=== PATIENT | male | born 1970 | race Caucasian/White ===

== ENCOUNTER 2016-07-21 15:17 | Inpatient (IN) | payer OTHER, MEDICARE, BC ==
[~2016-07-21] VITALS: Ht 167.6 cm; Wt 102.6 kg
[~2016-07-21 15:17] MED LIST: GABA-526 PO; LEVO125T PO; METOPROLOL PO; TIZANADINE PO; VICODIN PO
--- NOTE | 2016-07-21 16:29 | ERA ---
ER Documentation Chief Complaint Date/Time DATE: 07/21/16 TIME: 16:29 Chief Complaint bilateral foot pain non traumatic. swelling no deformity. HPI The patient is a 45-year-old female, presenting to the ER because of acute on chronic low back pain, lower extremity weakness and having difficulty walking that began today. She normally takes Percocet for her pain but it did not work. She denies fever, chills, neck pain, chest pain, abdominal pain, vomiting , dysuria, fecal or urinary incontinence. She does not smoke, drink denies any history of intravenous drug abuse Past medical history: Chronic low back pain, hypothyroidism Past surgical history: Hysterectomy ROS All systems reviewed and are negative except as per history of present illness. Medications Home Meds Reported Medications [Tizanadine] No Conflict Check, PO PRN Y for MUSCLE SPASMS 12/15/13 [Vicodin] No Conflict Check, 10 MG PO Y for PAIN 12/15/13 Gabapentin* (Gabapentin*) 600 Mg Tablet, 600 MG PO TID, TAB 12/15/13 [Metoprolol] No Conflict Check, 50 MG PO DAILY 12/15/13 Levothyroxine Sodium* (Synthroid*) 125 Mcg Tablet, 125 MCG PO AC BREAKFAST, TAB 12/15/13 Allergies Allergies: Coded Allergies: No Known Allergy (Unverified , 12/15/13) PMhx/Soc History of Surgery: Yes (GASTRIC BYPASS, CHOLECSYTECTOMY, HYSTERECTOMY) Anesthesia Reaction: No Hx Neurological Disorder: No Hx Respiratory Disorders: No Hx Cardiac Disorders: Yes (HTN) Hx Psychiatric Problems: No Hx Miscellaneous Medical Probl: No Hx Alcohol Use: No Hx Substance Use: No Hx Tobacco Use: No Physical Exam Vitals Vital Signs Date Time Temp Pulse Resp B/P Pulse Ox O2 Delivery O2 Flow Rate FiO2 07/21/16 15:20 98.8 85 20 141/85 98 Physical Exam Const: No acute distress. Head: Atraumatic. Eyes: Normal Conjunctiva. ENT: Normal External Ears, Nose and Mouth. Neck: Full range of motion. No meningismus. Resp: Clear to auscultation bilaterally. Cardio: Regular rate and rhythm, no murmurs. Abd: Soft, non distended, normal bowel sounds, non tender. Skin: No petechiae or rashes. Back: No midline or flank tenderness. Ext: No cyanosis, or edema. Neur: Awake and alert. No focal deficit Psych: Normal Mood and Affect. Results 24 hrs Laboratory Tests Test 07/21/16 17:19 Bedside Urine Blood Negative Bedside Urine Glucose (UA) Negative Bedside Urine Ketones (LAB) Negative Bedside Urine Leukocyte Esterase (L Negative Bedside Urine Nitrite (LAB) Negative Bedside Urine Protein (LAB) Negative Bedside Urine pH (LAB) 5.5 Current Medications Medications (Trade) Dose Ordered Sig/Cristino Route PRN Reason Start Time Stop Time Status Last Admin Dose Admin Morphine Sulfate (morphine) 4 mg ONCE STAT IV 07/21/16 17:03 07/21/16 17:04 Cancel Ondansetron HCl (Zofran Inj) 4 mg ONCE STAT IV 07/21/16 17:03 07/21/16 17:04 Cancel Morphine Sulfate (morphine) 4 mg ONCE ONCE IM 07/21/16 18:00 07/21/16 18:01 DC 07/21/16 17:43 Ondansetron HCl (Zofran Odt) 4 mg ONCE STAT ODT 07/21/16 17:34 07/21/16 17:36 DC 07/21/16 17:43 Hydromorphone HCl (Dilaudid) 2 mg ONCE STAT IV 07/21/16 18:53 07/21/16 18:54 DC 07/21/16 19:05 Procedures/[place] [address] Radiology Main Line: [phone] DIAGNOSTIC IMAGING REPORT Patient: DARRYL AUSTIN : 1970 Age: 45 Sex: F [id number] DOS: 07/21/16 1703 Ordering MD: EDI TOWNSEND MD Location: FTE Room/Bed: PROCEDURE: CT Lumbar Spine without contrast. CLINICAL INDICATION: Back pain. TECHNIQUE: Noncontrast CT of the lumbar spine was performed with multiplanar reformatted images generated from the axial acquired data. The administered radiation dose was CTDI vol = 38.01 mGy, DLP = 1019.67 mGy-cm. COMPARISON: There are no similar studies submitted for comparison. FINDINGS: There is normal lumbar lordosis. The vertebral body heights are maintained. There is normal alignment. There is no destructive osseous lesion. There is no acute fracture. T12-L1 : There is no disc herniation, spinal canal, or foraminal stenosis. L1-L2 : There is a 1 mm broad-based disk bulge without spinal canal or bilateral foraminal stenosis. L2-L3 : There is a 2 mm broad-based disk bulge without spinal canal stenosis. There is mild to moderate right with mild left foraminal stenosis. L3-L4 : There is a 2 mm broad-based disk bulge with mild spinal canal stenosis. There is mild bilateral foraminal stenosis. L4-L5 : There is a 2 mm broad-based disk bulge with mild bilateral facet arthropathy without spinal canal stenosis. There is mild bilateral foraminal stenosis. L5-S1 : There is mild to moderate disk space narrowing with vacuum disk phenomenon. There is a 4 mm circumferential disk bulge effacing the bilateral lateral recesses with moderate bilateral facet arthropathy without spinal canal stenosis. There is moderate right with mild to moderate left foraminal stenosis. The sacroiliac joints are intact. Surgical clips are noted within the pelvis. The patient is status post cholecystectomy. IMPRESSION: 1. No acute fracture. 2. Multilevel degenerative changes most pronounced at L5-S1 where there is a circumferential disk bulge effacing the bilateral lateral recesses with moderate right and mild to moderate left foraminal stenosis. Further findings as detailed above. RPTAT: PP .Gio Summers MD, Date Time Electronically viewed and signed by .Gio Summers MD, MD on 07/21/2016 18:15 .F/ CC: EDI TOWNSEND MD MEDICAL MAKING DECISION: The patient is a 45-year-old female, presenting with acute on chronic low back pain with moderate disc disease. She was treated with morphine 4 mg IM and Dilaudid 2 mg IM with moderate response. The differential diagnoses considered include but are not limited to caudal equina syndrome, spinal abscess, DJD, diskitis, lumbar radiculopathy. Departure Diagnosis: Primary Impression: Intractable back pain Condition: Stable Comments I discussed the findings with the patient. I discussed the patient with the on- call hospitalist Dr. Morin who was made aware of the lab, the treatment, the patient condition. The patient is admitted to [facility] at 7:45 PM The patient's blood pressure was elevated (>120/80) but appears stable without evidence of hypertension emergency or urgency. The patient was counseled about the risks of hypertension and urged to pursue outpatient monitoring and therapy within a week after discharge with their primary care physician. EDI TOWNSEND MD Jul 21, 2016 16:29
[2016-07-21] MEDS ORDERED: ONDANSETRON 4 MG INJ IV STA (17:03)
[2016-07-21] MEDS ORDERED: morphine 4 MG/ML VIAL IV STA (17:03)
[2016-07-21 17:16] LABS: URINE BLOOD (Dip) POC Negative (NEGATIVE)
[2016-07-21] MEDS ORDERED: ONDANSETRON (ODT) 4 MG TAB ODT STA (17:34)
[2016-07-21] MEDS ORDERED: morphine 10 MG INJ IM ONE (18:00)
--- NOTE | 2016-07-21 18:16 | RADRPT ---
PROCEDURE: CT Lumbar Spine without contrast. CLINICAL INDICATION: Back pain. TECHNIQUE: Noncontrast CT of the lumbar spine was performed with multiplanar reformatted images gen erated from the axial acquired data. The administered radiation dose was CTDI vol = 38.01 mGy, DLP = 1019.67 mGy-cm. COMPARISON: There are no similar studies submitted for comparison. FINDINGS: There is normal lumbar lordosis. The vertebral body heights are maintained. There is normal alignment. There is no destructive osseous lesion. There is no acute fracture. T12-L1 : There is no disc herniation, spinal canal, or foraminal stenosis. L1-L2 : There is a 1 mm broad-based disk bulge without spinal canal or bilateral foraminal stenosis. L2-L3 : There is a 2 mm broad-based disk bulge without spinal canal stenosis. There is mild to mode rate right with mild left foraminal stenosis. L3-L4 : There is a 2 mm broad-based disk bulge with mild spinal canal stenosis. There is mild bilat eral foraminal stenosis. L4-L5 : There is a 2 mm broad-based disk bulge with mild bilateral facet arthropathy without spinal canal stenosis. There is mild bilateral foraminal stenosis. L5-S1 : There is mild to moderate disk space narrowing with vacuum disk phenomenon. There is a 4 mm circumferential disk bulge effacing the bilateral lateral recesses with moderate bilateral facet ar thropathy without spinal canal stenosis. There is moderate right with mild to moderate left foramin al stenosis. The sacroiliac joints are intact. Surgical clips are noted within the pelvis. The patient is status post cholecystectomy. IMPRESSION: 1. No acute fracture. 2. Multilevel degenerative changes most pronounced at L5-S1 where there is a circumferential disk bu lge effacing the bilateral lateral recesses with moderate right and mild to moderate left foraminal stenosis. Further findings as detailed above. RPTAT: PP .Gio Summers MD, Date Time Electronically viewed and signed by .Gio Summers MD, MD on 07/21/2016 18:15 .F/
[2016-07-21] MEDS ORDERED: HYDROmorphONE 2 MG/ML SYG IV STA (18:53)
[2016-07-21] MEDS ORDERED: ACETAMINOPHEN 325 MG TAB PO PRN (20:00)
[2016-07-21] MEDS ORDERED: DOCUSATE SODIUM 100 MG CAP PO PRN (20:00)
[2016-07-21] MEDS ORDERED: hydrALAzine 20 MG INJ IV PRN (20:00)
[2016-07-21] MEDS ORDERED: NACL 0.9% 3 ML SYG IV SCH (20:00)
[2016-07-21] MEDS ORDERED: morphine 2 MG INJ IV PRN (20:00)
[2016-07-21] MEDS ORDERED: ONDANSETRON 4 MG INJ IV PRN (20:00)
--- NOTE | 2016-07-21 20:39 | HP ---
Date/Time of Note Date/Time of Note DATE: 07/21/16 TIME: 20:26 Assessment/Plan VTE Prophylaxis VTE Prophylaxis Intervention: LMWH Assessment/Plan Assessment/Plan 45 yo female with a past medical history of hypothyroidism, essential hypertension, lumbar radiculopathy 2/2 to injury at work, who complains of worsening lumbar pain with decreased ability to walk. 1. Lumbar radiculopathy - will admit the patient to med/surg, obtain an MRI lumbar spine, consult Dr. Barrett, pain management and bowel regimen. PT eval 2. Essential hypertension - c/w metoprolol, and hydralazine prn for SBP > 160 3. Hypothyroidism - check TSH, c/w synthroid 4. GI ppx - pepcid po 5. DVT ppx - lovenox answered all of her questions. as per clinical course. this history and physical took greater then 45 minutes to complete HPI/ROS Admit Date/Time Admit Date/Time 07/21/2016, 8:26 pm Hx of Present Illness 45 yo female with a past medical history of hypothyroidism, essential hypertension, lumbar radiculopathy 2/2 to injury at work, who complains of worsening lumbar pain with decreased ability to walk. She states that the pain is 10/10 in intensity, no alleviating factors, the percocets that she was prescribed were not helping, shooting/burning pain down her R > L leg. She is able to defecate and urinate. Otherwise she sees Dr. Kj Barrett as an outpatient at [facility] for management. She had called his office earlier and as per the patient was told that "she had a neurological emergency" - unknown if this is true fact. 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 Otherwise denies any chest pain, shortness of breath, loss of consciousness, headaches, direct trauma , recent falls or other constitutional symptoms. ED course: pain medications ROS 14 point review of systems completed, please refer to HPI for any positive findings PMH/Family/Social Past Medical History Medical History: hypertension, hypothyroid Past Surgical History hysterectomy, gastric bypass with chai en y Past Surgical Hx: appendectomy, cholecystectomy Family History Significant Family History: cancer (ovarian CA in mother's side) Social History Alcohol Use: none Smoking Status: Never smoker Drug Use: none Exam/Review of Systems Vital Signs Vitals Vital Signs Date Time Temp Pulse Resp B/P Pulse Ox O2 Delivery O2 Flow Rate FiO2 07/21/16 15:20 98.8 85 20 141/85 98 Exam Exam Gen Keny: mild to moderate distress 2/2 to back pain, AAOx4, obese female HEENT: NC/AT, PERRLA, EOMI, no pharyngeal erythema, no tonsillar exudates, no lymphadenopathy, no JVD, no carotid bruits NECK: supple, no thyromegaly THORAX: symmetrical, no obvious deformities CV: S1S2, RRR, no M/G/R Lungs: CTAB no W/C/R/R Abd: soft, NT/ND, +BS, no rebound, no guarding, neg HSM EXT: no edema, no ecchymosis, no clubbing, FROM MSK: tenderness to palpation L4-L5 region, with paraspinal tenderness R > L, with tenderness posterior right leg > left leg, + positive straight leg Neuro: CN II-XII grossly intact, no focal deficits Psych: good mentation, alert and oriented, good mood and affect Skin: C/D/I Medications Medications Current Medications Ondansetron HCl (Zofran Inj) 4 mg Q6H PRN IV NAUSEA AND/OR VOMITING; Start at 20:00 Acetaminophen (Tylenol Tab) 650 mg Q6H PRN PO PAIN LEVEL 1-3 OR FEVER; Start at 20:00 Oxycodone/ Acetaminophen (Percocet (5/ 325)) 2 tab Q6H PRN PO SEVERE PAIN LEVEL 7-10; Start 07/21/16 at 20:00 Morphine Sulfate (morphine) 2 mg Q4H PRN IV SEVERE PAIN LEVEL 7-10; Start 07/21 at 20:00 Hydromorphone HCl (Dilaudid) 0.5 mg Q4H PRN IV SEVERE PAIN LEVEL 7-10; Start at 20:00 Docusate Sodium (Colace) 100 mg Q12H PRN PO CONSTIPATION; Start 07/21/16 at 20: 00 Famotidine (Pepcid) 20 mg Q12 PO ; Start 07/21/16 at 21:00 Enoxaparin Sodium (Lovenox) 40 mg DAILY SC ; Start 07/22/16 at 09:00 Gabapentin (Neurontin) 600 mg TID PO ; Start 07/21/16 at 21:00 Hydralazine HCl (Apresoline) 10 mg Q6H PRN IV sbp > 160; Start 07/21/16 at 20: 00 Metoprolol Tartrate (Lopressor) 50 mg DAILY PO ; Start 07/22/16 at 09:[address] lumbar spine IMPRESSION: 1. No acute fracture. 2. Multilevel degenerative changes most pronounced at L5-S1 where there is a circumferential disk bulge effacing the bilateral lateral recesses with moderate right and mild to moderate left foraminal stenosis. MILES CONTEH MD Jul 21, 2016 20:38
[2016-07-21] MEDS: FAMOTIDINE 20 MG TAB PO SCH (21:00)
[2016-07-21] MEDS: GABAPENTIN 300 MG CAP PO SCH (21:00)
--- NOTE | 2016-07-21 22:07 | RADRPT ---
PROCEDURE: MR lumbar spine without contrast. CLINICAL INDICATION: Low back pain. TECHNIQUE: The study was performed utilizing a Signa HDxt 3 Donna magnet. The following pulse sequ ences were obtained: Axial proton density T2, sagittal T1, and sagittal T2 with and without fat satu ration images. Images were reviewed on a PACS workstation. COMPARISON: Correlation is made with the CT done 07/21/2016. FINDINGS: Lumbar vertebral body heights, signal intensity and alignment are within normal limits. Th ere is no acute fracture or subluxation. The conus is at L1, within normal limits. At T12-L1, the disk height and signal are within normal limits. There is no central canal or neural foraminal stenosis. At L1-L2, the disk height and signal are within normal limits. There is no central canal or neural f oraminal stenosis. At L2-L3, the disk height and signal are within normal limits. There is a mild posterior disk bulge. There is no central canal or neural foraminal stenosis. At L3-L4, there is disk desiccation and mild loss of disk height. There is a mild posterior disk bu lge. There is no central canal or neural foraminal stenosis. At L4-L5, there is disk desiccation and mild loss of disk height. There is a mild posterior disk bu lge containing a focal hyperintensity suggestive of an annular fissure. There is no central canal or neural foraminal stenosis. At L5-S1, the disk height and signal are within normal limits. There is a mild 4 mm AP diameter post erior broad-based disk protrusion. There is no central canal or neural foraminal stenosis. There is no paraspinal mass or collection. IMPRESSION: At L4-L5, there is mild discogenic disease and a mild posterior disk bulge containing a focal hyperi ntensity suggestive of an annular fissure. At L5-S1, there is a mild posterior broad-based disk protrusion. There is no central canal or neural foraminal stenosis. Mild posterior disk bulges at L2-L3 and L3-L4. .Abdi Singh MD, MD Date Time Electronically viewed and signed by .Abdi Singh MD, MD on 07/21/2016 22:06 .T/
[2016-07-21 22:10] VITALS: BP 140/89; PULSE 70; RESP 18; Ht 167.6 cm; Wt 102.6 kg
[2016-07-21 22:47] LABS: BASOPHIL # 0.1 10^3/ul (0.0-0.1); BASOPHILS % 0.9 % (0.0-2.0); EOSINOPHILS # 0.5 10^3/ul (0.0-0.5); EOSINOPHILS % 6.1 % (0.0-7.0); HEMATOCRIT 40.6 % (37.0-47.0); HEMOGLOBIN 13.8 g/dl (12.0-16.0); LYMPHOCYTES # 2.8 10^3/ul (0.8-2.9); LYMPHOCYTES % 34.4 % (15.0-51.0); MEAN CORPUSCULAR HEMOGLOBIN 31.2 pg (29.0-33.0); MEAN CORPUSCULAR HGB CONC 34.1 g/dl (32.0-37.0); MEAN CORPUSCULAR VOLUME 91.6 fl (82.0-101.0); MEAN PLATELET VOLUME 7.3 fl (7.4-10.4); MONOCYTE # 0.5 10^3/ul (0.3-0.9); MONOCYTES % 5.7 % (0.0-11.0); NEUTROPHIL # 4.3 10^3/ul (1.6-7.5); NEUTROPHILS % 52.9 % (39.0-77.0); PLATELET COUNT 306 10^3/UL (140-440); RED BLOOD COUNT 4.43 10^6/ul (4.20-5.40); RED CELL DISTRIBUTION WIDTH 12.3 % (11.5-14.5); UNCORRECTED WBC 8.1 10^3/ul (4.8-10.8); WHITE BLOOD COUNT 8.1 10^3/ul (4.8-10.8)
[2016-07-21 22:52] LABS: INR 0.91; PARTIAL THROMBOPLASTIN TIME 29.6 Sec (25.0-35.0); POTASSIUM 4.2 mmol/L (3.5-5.1); PROTIME 12.3 Sec (12.2-14.2)
[2016-07-21 22:54] LABS: CREATININE 0.57 mg/dl (0.44-1.00)
[2016-07-21 22:55] LABS: CALCIUM 9.2 mg/dl (8.4-10.2)
[2016-07-21 22:56] LABS: CONDITION 1
[2016-07-21] MEDS ORDERED: DOCU-144 PO (23:11)
[2016-07-21] MEDS ORDERED: METH-70 PO (23:11)
[2016-07-21] MEDS ORDERED: CLON-412 PO (23:11)
[2016-07-21] MEDS ORDERED: PREG150C PO (23:11)
[2016-07-21] MEDS ORDERED: DULO60CA6 PO (23:11)
[2016-07-21] MEDS ORDERED: OXYC20TA41 PO (23:11)
[2016-07-21] MEDS ORDERED: VALS160T20 PO (23:11)
[2016-07-21] MEDS ORDERED: LINA290C PO (23:11)
[2016-07-21] MEDS ORDERED: OMEP20CA16 PO (23:11)
[2016-07-21] MEDS ORDERED: QUET25TA26 PO (23:11)
[2016-07-21] MEDS ORDERED: clonAZEPAM 0.5 MG TAB PO PRN (23:30)
[2016-07-21] MEDS: PREGABALIN 75 MG CAP PO SCH (23:59)
[2016-07-21] MEDS: OXYCODONE/ACETAMINOPHEN (5/325) TAB PO PRN (23:59)
[2016-07-22] MEDS: HYDROmorphONE 1 MG/ML SYG IV PRN ×3 (01:22→20:24)
[2016-07-22] MEDS ORDERED: VITAMIN A & D 5 GM OINT PACKET TOP ONE (01:30)
[2016-07-22 05:45] LABS: CREATININE 0.56 mg/dl (0.44-1.00)
[2016-07-22 05:46] LABS: CALCIUM 9.1 mg/dl (8.4-10.2)
[2016-07-22 05:48] LABS: CHOL/HDL RATIO 4.2 RATIO
[2016-07-22 06:17] LABS: THYROID STIMULATING HORMONE 4.6 MIU/L (0.465-4.680)
[2016-07-22 06:37] LABS: BASOPHILS % 0.6 % (0.0-2.0); EOSINOPHILS # 0.5 10^3/ul (0.0-0.5); EOSINOPHILS % 6.9 % (0.0-7.0); HEMOGLOBIN 12.8 g/dl (12.0-16.0); LYMPHOCYTES # 2.9 10^3/ul (0.8-2.9); LYMPHOCYTES % 38.5 % (15.0-51.0); MEAN CORPUSCULAR HEMOGLOBIN 31.6 pg (29.0-33.0); MEAN CORPUSCULAR HGB CONC 34.6 g/dl (32.0-37.0); MEAN CORPUSCULAR VOLUME 91.3 fl (82.0-101.0); MEAN PLATELET VOLUME 7.7 fl (7.4-10.4); MONOCYTE # 0.5 10^3/ul (0.3-0.9); MONOCYTES % 6.9 % (0.0-11.0); NEUTROPHIL # 3.5 10^3/ul (1.6-7.5); NEUTROPHILS % 47.1 % (39.0-77.0); PLATELET COUNT 254 10^3/UL (140-440); RED BLOOD COUNT 4.05 10^6/ul (4.20-5.40); RED CELL DISTRIBUTION WIDTH 12.3 % (11.5-14.5); UNCORRECTED WBC 7.5 10^3/ul (4.8-10.8); WHITE BLOOD COUNT 7.5 10^3/ul (4.8-10.8)
[2016-07-22 06:48] LABS: CONDITION 1
[2016-07-22] MEDS ORDERED: LEVOTHYROXINE 125 MCG TAB PO SCH (07:00)
[2016-07-22 08:58] VITALS: BP 126/85; PULSE 65; RESP 20
[2016-07-22] MEDS ORDERED: METOPROLOL 50 MG PO SCH (09:00)
[2016-07-22] MEDS ORDERED: DOCUSATE SODIUM 100 MG CAP PO SCH (09:00)
[2016-07-22] MEDS: GABAPENTIN 300 MG CAP PO SCH ×4 (09:00→21:00)
[2016-07-22] MEDS: DULOXETINE 30 MG CAP DR PO SCH ×2 (09:00→09:01)
[2016-07-22] MEDS ORDERED: VALSARTAN 160 MG TAB PO SCH (09:00)
[2016-07-22] MEDS ORDERED: ENOXAPARIN 40 MG/0.4 ML SYG SC SCH (09:00)
[2016-07-22] MEDS ORDERED: METOPROLOL 50 MG TAB PO SCH (09:00)
[2016-07-22] MEDS: OXYCODONE/ACETAMINOPHEN (5/325) TAB PO PRN ×2 (09:00→15:17)
[2016-07-22] MEDS: PREGABALIN 75 MG CAP PO SCH ×2 (09:00→20:27)
[2016-07-22] MEDS: FAMOTIDINE 20 MG TAB PO SCH ×2 (09:01→21:00)
--- NOTE | 2016-07-22 09:06 | CONS ---
DATE OF ADMISSION: 07/21/2016 DATE OF CONSULTATION: 07/22/2016 CHIEF COMPLAINT: 1. Low back pain. 2. Bilateral leg pain, left greater than right. 3. Acute foot drop on the left. HISTORY OF PRESENT ILLNESS: This is a 45-year-old female who sustained an injury to her back in the course of her employment in 2011. She has been under my care as an outpatient for severe back and lower extremity complaints, left greater than right, and has undergone a number of diagnostic studies prior to this admission, which demonstrated a herniated disk at L5-S1, centrally and to the left. Electrodiagnostic testing in the past has shown a left S1 radiculopathy. Surgical authorization has been requested, but denied. She presented to the [facility] emergency room last night with an acute foot drop, and was admitted by Dr. Morin. She remains highly symptomatic with back and lower extremity complaints, left greater than right. She says there is some numbness on the dorsum of both feet. She reports no new injuries. PHYSICAL EXAMINATION: GENERAL: This is a well-developed, well-nourished white female in no acute distress. NEUROLOGIC: Her pertinent neurologic examination reveals weakness of the EHLs bilaterally, with the right being +4/5, the left being +3/5. Anterior tibialis muscles are normal on the right, +4/- on the left. Sensory examination reveals decreased sensation in the dorsum of both feet. Reflexes are symmetric at the knees and ankles. Straight leg raising is painful at 40 degrees on the left and 70 degrees on the right. Gait was not assessed. Palpation of lumbar spine and paraspinal muscles revealed no spasm. She has tenderness in the midline from L3 to sacrum and over the paraspinal musculature on the left from L3 to the sacrum. IMAGING: CT and MRI of the lumbar spine performed at [facility] reveal a central herniation at L5-S1, small to moderate in size. No other significant spinal abnormalities were noted. DIAGNOSES: 1. Chronic lumbosacral strain. 2. Herniated disk L5-S1 (small to moderate). 3. Left S1 radiculopathy (previous). 4. Acute foot drop on the left. ASSESSMENT AND PLAN: This is a 45-year-old woman was admitted by Dr. Morin for severe back and lower extremity complaints as well as acute foot drop on the left. Review of her imaging studies performed in the last 24 hours does not provide a ready explanation for her foot drop, and for that reason I have requested a neurologic consultation before considering surgical options. Thank you for the opportunity to participate in the care of this pleasant woman. I will be happy to follow her along with you during and after her hospitalization as requested. If there are any questions regarding this consultation, do not hesitate to contact me at any time. Dictated By: GUANAKO BURTON MD TM/NTS Conf#: [id number] DID#: [id number] CC: MILES MORIN MD;*EndCC* MTDD
--- NOTE | 2016-07-22 11:15 | PN ---
DATE: 07/22/2016 TIME OF EVALUATION: 10:00 a.m. SUBJECTIVE DATA: Complains of bilateral lower extremity CVA pain with bilateral lower extremity weakness. Complains of bilateral sciatic pain, right greater than left. OBJECTIVE: VITAL SIGNS: Temperature 98.1, pulse rate 60, respiratory rate 20, blood pressure 126/87, oxygen saturation 98% on room air. GENERAL: This is an obese female patient lying in bed in no apparent distress. HEENT: Head normocephalic and atraumatic. Eyes: Anicteric sclerae. Conjunctivae clear. ENT: Nasal septum is midline. Oral mucosa is moist. NECK: Supple. No JVD noticed. RESPIRATORY: Bilaterally clear to auscultation. No adventitious breath sounds heard. No use of accessory muscles of respiration. CARDIAC: Regular rate and rhythm. No murmurs heard. ABDOMEN: Soft, nontender and nondistended. Bowel sounds positive in all 4 quadrants. GENITOURINARY: Deferred. EXTREMITIES: No cyanosis, no clubbing, no edema. Peripheral pulses are palpable. NEUROLOGIC: The patient is awake, alert and oriented. Bilateral lower extremity weakness, left greater than right. LABORATORY AND DIAGNOSTIC DATA: WBC 7.3, hemoglobin 12.8, hematocrit 37.0, platelet count 254. Sodium 140, potassium 4.0, chloride 104, carbon dioxide of 20, anion gap 15, BUN 10, creatinine 0.56, glucose 82, calcium 9.1. ASSESSMENT: 1. Acute onset of bilateral lower extremity weakness with left foot drop. The patient was seen and evaluated by Dr. Barrett. Pending neurosurgery consult. Pending neurology consult. 2. Chronic lumbosacral strain with left S1 radiculopathy and herniated disk at L5 to S1. Continue pain control. 3. Essential hypertension. Continue antihypertensives. Blood pressure well controlled. 4. Hypothyroidism. Continue Synthroid. 5. Obesity. BMI of 36.5 kg/meter squared. We will advise weight reduction. 6. Fibromyalgia. Continue Cymbalta. 7. Fluid, electrolytes and nutrition. Continue a regular diet as tolerated. 8. Deep venous thrombosis prophylaxis with bilateral sequential compression devices. 9. Gastrointestinal prophylaxis. Histamine 2 receptor blockers. PLAN: Await neurosurgery and neurology evaluation. Neurology consult was called. Case discussed with Dr. Hernandez. WARNER HERNANDEZ MD, AM/NTS Conf#: [id number] DID#: [id number] MTDD
[2016-07-22 20:05] VITALS: BP 120/89; RESP 20
[2016-07-22] MEDS ORDERED: IMMUNE GLOBULIN (HUMAN) 6 GM INJ IV SCH (20:30)
[2016-07-22] MEDS ORDERED: DEC4 PO (20:56)
--- NOTE | 2016-07-22 20:58 | PDOCDIS ---
Discharge Instructions DIAGNOSIS Discharge Diagnosis: Foot Drop CONDITION Patient Condition: Stable HOME CARE INSTRUCTIONS: Diet Instructions: Low Fat /Cholesterol ACTIVITY: Activity Restrictions: Slowly Increase Activity Rest between Activity Avoid heavy lifting FOLLOW UP/APPOINTMENTS Appointments Follow up with Dr. Love (neuro) at his office as scheduled. Follow up with Dr. Barrett in office. OTHER ORDERS: Other Orders: Foot drop - take the decadron as prescribed. outpatient follow up MILES CONTEH MD Jul 22, 2016 20:57
[2016-07-22] MEDS ORDERED: QUETIAPINE 25 MG TAB PO SCH (21:00)
[2016-07-22] MEDS ORDERED: DULOXETINE 30 MG CAP DR PO SCH (21:00)
--- NOTE | 2016-07-22 23:30 | CONS ---
DATE OF ADMISSION: 07/21/2016 DATE OF CONSULTATION: TYPE OF CONSULTATION: Neurological. Thank you, Adithya Nichols, nurse practitioner, for your kind referral for evaluation of weakness in the lower extremities. HISTORY OF PRESENT ILLNESS: The patient is a 45-year-old lady with history of work-related injury to the lumbar spine 5 years ago. The patient has chronic back pain, has seen Pain Management. At times back pain radiates to the legs, but she denies any weakness or numbness complaints with that. The patient stated that she was seeing Dr. Barrett in the past and had electrodiagnostic studies which show S1 radiculopathy. The patient stated that 2 days ago she developed numbness in bilateral feet as well as a tingling sensation and weakness on dorsiflexion of the feet. She stated her walk has changed as she is now exhibiting steppage. She was evaluated by her spinal surgeon, Dr. Barrett. MRI of the lumbar spine was done showing L4-L5 mild discogenic disease with a mild posterior bulge of the disk and annular fissure at L5-S1 level. Also mild posterior broad-based disk protrusion was seen, was 4 mm. No central canal or neural foraminal stenosis. The patient stated that she has no problems with her hands, no weakness or tingling or numbness. She stated that at times she feels like her feet and hands are covered by socks and gloves. This sensation has been present for approximately 6 months. She has no definite preceding viral illness. She had severe diarrheal illness with fevers somewhere in April. OTHER MEDICAL PROBLEMS: Fibromyalgia and hypothyroidism, also irritable bowel syndrome. The patient also has history of hypertension. CURRENT MEDICATIONS: 1. Seroquel 25 at bedtime. 2. Cymbalta 120 at bedtime. 3. Metoprolol. 4. Colace. 5. Diovan. 6. Synthroid. 7. Lyrica 150 twice daily. 8. Klonopin 1 mg three times a day. 9. Gabapentin 600 three times a day. 10. Pepcid. 11. Oxycodone. 12. Morphine. 13. Dilaudid p.r.n. ALLERGIES: NONE. SOCIAL HISTORY: No alcohol, tobacco, drug use. FAMILY HISTORY: Not contributory. LABORATORY: The patient's labs show normal CBC; normal PT, PTT; normal basic metabolic panel; hemoglobin A1c 5.3 and TSH within normal limits; normal urinalysis. REVIEW OF SYSTEMS: All pertinent positives included in the above history of present illness. PHYSICAL EXAMINATION: VITAL SIGNS: Temperature 98.2, pulse 72, respirations 20, blood pressure 120/ 89. GENERAL: No in acute distress, lying in bed. HEENT: Normocephalic, atraumatic head. NECK: No carotid bruits. No thyromegaly. LUNGS: Clear to auscultation bilaterally. HEART: Normal cardiac rhythm and sounds. ABDOMEN: Soft. EXTREMITIES: No cyanosis, clubbing or edema. NEUROLOGIC: She is awake, alert and oriented x3 with fluent speech. Cranial nerve examination shows intact visual rosenberg bilaterally. Pupils round, reactive to light from 4 to 2 mm bilaterally. Extraocular movements intact without nystagmus. Symmetrical face. Preserved facial strength and sensation. Tongue is in midline. Palate elevates symmetrically. Motor strength examination has some amount of give-way but seems that the patient may have minimal weakness on elbow flexion, about 4+/5. In lower extremities, feet plantar and dorsiflexion seem to be weak, about 3+ to 4-/5 on dorsiflexion and maybe 4/5 plantar flexion, maybe 4/5 on knee extension as well. Sensory examination shows diminution of vibration and pinprick in bilateral hands and feet as well as dorsal forelegs. Deep tendon reflexes 2+ upper extremities and knees. Absent ankle jerks. No response to plantar stimulation bilaterally. Coordination preserved on [id number] testing. No dysmetria or tremor. Gait: The patient needs assistance, and she exhibits steppage, unable to walk on the heels also. IMPRESSION: New onset of weakness and numbness in bilateral feet with loss of reflexes in the feet is suspicious for Guillain-Cozad syndrome. Symptoms are relatively mild, and at times mild Guillain-Cozad syndrome could be left untreated, but given that patient has worsening of her ambulation because of this weakness, I think it is reasonable to treat it. I will treat it with IVIG 0.5 grams/kg daily for 4 days. I will also obtain lumbar puncture to evaluate protein level, which is frequently elevated in Guillain-Cozad syndrome. Will start the first dose of IVIG tonight and will give another one tomorrow in the morning. The patient wants to be discharged tomorrow, and it is okay with me. We could arrange home health to finish up IVIG treatment at home. The patient stated that she is scheduled to have EMG and nerve conduction study this coming Thursday, which could be very helpful for diagnosis of acute demyelinating polyneuropathy, which is Guillain-Cozad syndrome. She has mild degenerative disk disease secondary to work-related injury 5 years ago, but I do not think that her lumbosacral spinal disease is responsible for the weakness in the feet. Continue current treatment. Again, it is okay with me if patient would be discharged tomorrow if she decides to. Dictated By: MANJU ELISE/ALEX Conf#: [id number] DID#: [id number] MTDD
--- NOTE | 2016-07-23 08:14 | DS ---
DATE OF ADMISSION: 07/21/2016 DATE OF DISCHARGE: 07/22/2016 FINAL DIAGNOSES: 1. Acute onset of bilateral lower extremity weakness, left greater than right. 2. Chronic lumbosacral strain with left S1 radiculopathy and herniated disk at L5-S1. 3. Essential hypertension. 4. Hypothyroidism. 5. Obesity. 6. Fibromyalgia. CONSULTANTS: 1. Dr. Kj Barrett, orthopedic surgery. 2. Dr. Liam Singh, neurology. 3. Dr. Nehemias Pappas, neurosurgery. HOSPITAL COURSE: This is a 45-year-old female with past medical history of essential hypertension, hypothyroidism, and chronic back pain secondary to alleged injury at work, who came to the emergency room with worsening lumbar pain and decreased ability to walk as well as bilateral lower extremity weakness. The patient regularly follows up with Dr. Barrett as outpatient for chronic back pain management. She called his office earlier before admission and the patient was told go to the nearest emergency room. In the emergency room, the patient underwent a lumbar spine MRI that showed L4 to L5 discogenic disease and mild posterior disk bulge containing a focal hypodensity suggestive of an annular fissure with L5-S1 mild posterior broad-based disk protrusion with no central canal or neural foraminal stenosis. The patient's lumbar spine CT was showing no acute fracture, but degenerative changes. The patient was admitted to inpatient setting. An orthopedic surgery consult was called with Dr. Barrett. The patient was seen and examined by Dr. Barrett. As per Dr. Barrett, the patient has bilateral lower extremity weakness, left greater than right, and possible left foot drop. Dr. Barrett consulted, neurosurgery and neurology. 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 Neurology wanted to start the patient on IVIG and order a lumbar puncture. However, the patient refused any of these. Meanwhile , the neurosurgeon evaluated the patient and advised to start the patient on tapering dose of steroids. The patient refused any further workup, including a lumbar puncture and further treatment including any IVIG. Hence, the patient will be discharged home on a tapering dose of steroids. The patient had a stable hospital course. The patient is stable to be discharged home, provided the patient follows up with Dr. Barrett as outpatient. DISCHARGE DISPOSITION/PLAN: The patient will be discharged home today. The patient was instructed to take a low-cholesterol diet as tolerated. The patient was instructed to resume her home medications. The patient was instructed to avoid heavy lifting and to rest in between activity. The patient was instructed to slowly increase activity. The patient was seen and evaluated by physical therapy, and physical therapy recommended DME. The patient has all the DME at home. The patient has help at home, too. The patient was advised to follow up with Dr. Wheeler as outpatient and to follow up with Dr. Barrett's office as outpatient. The patient verbalized understanding of her discharge instructions. CONDITION AT DISCHARGE: Stable. DISCHARGE MEDICATIONS: 1. Decadron 4 mg p.o. q.i.d., to taper down gradually. 2. Klonopin 1 mg p.o. q.8 h. p.r.n. 3. Colace 200 mg p.o. daily. 4. Cymbalta 120 mg p.o. daily. 5. Gabapentin 600 mg p.o. t.i.d. 6. Synthroid 125 mcg p.o. before breakfast. 7. Linzess 290 mcg p.o. daily. 8. Methocarbamol 750 mg p.o. q.6 h. p.r.n. muscle spasms. 9. Omeprazole 20 mg p.o. daily. 10. OxyContin 20 mg p.o. q.12 h. 11. Lyrica 150 mg p.o. b.i.d. 12. Seroquel 25 mg p.o. at bedtime. 13. Valsartan 160 mg p.o. daily. 10. Metoprolol 50 mg p.o. daily. 11. Tizanidine p.o. p.r.n. muscle spasms. PERTINENT LABORATORY AND DIAGNOSTIC DATA: 1. Latest CBC: WBC 7.5, hemoglobin 12.8, hematocrit 37.0, platelet count [id number]. 2. Latest BMP: Sodium 140, potassium 4.0, chloride 104, anion gap 15, BUN 10, creatinine 0.56, glucose 82, calcium 9.1. 3. Hemoglobin A1c 5.3. 4. Fasting lipid panel: Triglycerides 206, total cholesterol 199, LDL 111, HDL 4.7. 5. Lumbar spine MRI: At L4-L5 there is mild discogenic disease and mild posterior disk bulge containing a focal hyperdensity, suggestive of an annular fissure. At L5-S1 there is mild posterior broad-based disk protrusion. There is no central canal or neural foraminal stenosis. 6. Lumbar spine CT: No acute fracture. Multilevel degenerative changes most pronounced at L5-S1. Further, there is circumferential disk bulge effacing the bilateral lateral recesses with moderate right and mild to moderate left foraminal stenosis. At this time I would like to thank all the consultants for seeing the patient and providing clinical recommendations. The case and management of this patient was fully discussed with Dr. Hernandez. Approximately 35 minutes were spent on coordinating the discharge on this patient. WARNER HERNANDEZ MD, AM/ALEX Conf#: [id number] DID#: [id number] MTDD
== END 2016-07-22 21:31 | disposition home or self-care (01) | DRG 552 ==
LOC: EDSEX → FTE 15:17 → MS1 19:49
PROVIDERS: ADMIT Student in an Organized Health Care Education/Training Program; ATTEND Student in an Organized Health Care Education/Training Program
DX: M51.17 Intervertebral disc disorders with radiculopathy, lumbosacral region (principal); I10 Essential (primary) hypertension; E03.9 Hypothyroidism, unspecified; M79.7 Fibromyalgia; E66.9 Obesity, unspecified; Z68.36 Body mass index [BMI] 36.0-36.9, adult; M21.372 Foot drop, left foot
CPT/HCPCS: 72131; 72148; 80048; 80061; 81003; 83036; 83735; 84443; 85025; 85610; 85730; 96372; 96374; 97163; J1170; J2270; J2405

== ENCOUNTER 2016-11-10 06:20 | Inpatient (IN) | payer BC, MEDICARE, OTHER ==
[~2016-11-10] VITALS: Ht 167.6 cm; Wt 104.0 kg
[2016-11-10] VITALS (26 sets, daily range): BP systolic 93–141; BP diastolic 55–91; PULSE 65–94; RESP 13–23; Ht 167.6 cm; Wt 104.0 kg
[~2016-11-10 06:20] MED LIST changes: +CEFAZOLIN 2 GM/50 ML (PMX) 50 ML IVPB SCH; +CLON-412 PO; +DEC4 PO; +DOCU-144 PO; +DULO60CA6 PO; +LACTATED RINGER'S 1,000 ML IV SCH; +LINA290C PO; +METH-70 PO; +OMEP20CA16 PO; +OXYC20TA41 PO; +PREG150C PO; +QUET25TA26 PO; +VALS160T20 PO
--- NOTE | 2016-11-10 06:55 | PREOPHP ---
DATE OF ADMISSION: 11/10/2016 REASON FOR ADMISSION: Low back pain. HISTORY OF PRESENT ILLNESS: This 46-year-old female was in her usual state of health until 01/05/20 12 when she was injured at work. Since that time, she has had low back pain which radiates down her right leg. The patient has failed medical therapy which included multiple epidural injections. Mai torre was diagnosed with spinal stenosis and she has had an antalgic gait. CURRENT MEDICATIONS: Include: 1. Seroquel 25 mg at bedtime. 2. Levothyroxine 125 mcg a day. 3. Diovan 160 mg a day. 4. Linzess 290 mg once a day. 5. Prilosec 20 mg a day. 6. Colace 200 mg a day. 7. OxyContin 20 mg q.12h. 8. Lyrica 150 mg twice a day. 9. Cymbalta 60-mg tablets, 2 p.o. daily. 10. Klonopin 1 mg p.o. p.r.n. panic attack. 11. Percocet 10/325 p.o. q.6h. p.r.n. pain. 12. Robaxin 750, two tablets 3 times a day as needed for back spasms. PAST MEDICAL HISTORY: Remarkable for hypothyroidism, hypertension, migraine headaches, irritable isidro wel syndrome, GI ulcer, diverticulosis, hemorrhoids, spinal stenosis, disk herniations, lumbar radic ulopathy, fibromyalgia, chronic pain syndrome, insomnia, anxiety, depression and panic disorder. ALLERGIES: 1. SHELLFISH. 2. PLASTIC TAPE. SURGICAL HISTORY: 1. Laparoscopic gastric bypass in 2009. 2. Laparoscopic cholecystectomy in 2010. 3. Hysterectomy and right oophorectomy in 2011. 4. Panniculectomy in 2014. 5. Left oophorectomy in 2016. FAMILY HISTORY: Father . Mother . Father of a gunshot wound; mother of ovari an cancer. SOCIAL HISTORY: The patient is a nonsmoker. Drinks alcohol socially. OCCUPATION: Disabled RN. REVIEW OF SYSTEMS: CONSTITUTIONAL: No chills, no weight gain, no loss of appetite, no fever, no weakness, no weight lo ss, no fatigue. OPHTHALMOLOGIC: Negative. EARS, NOSE AND THROAT: Negative. CARDIORESPIRATORY: Denies any exertional chest pain, chest pressure, cough, ankle swelling. She pyle s no history of heart disease. GASTROINTESTINAL: She has constipation and irritable bowel syndrome. UROLOGIC: She has had mixed urinary incontinence. She has nocturia 2 times per night. PHYSICAL EXAMINATION: GENERAL: At this time reveals a well-developed, obese female, in no apparent distress. VITAL SIGNS: Temperature 96.5, blood pressure 127/98, blood pressure was repeated and was 130/90. Her BMI is 37.1. HEAD: Normocephalic. EYES: Extraocular muscles intact. NOSE AND MOUTH: Normal. NECK: Supple. No neck vein distention. LUNGS: Clear to auscultation. HEART: Regular rhythm. No murmurs, gallops or rubs. ABDOMEN: Soft, nontender. No masses or megaly. EXTREMITIES: No peripheral edema. Pedal pulses were 2+ bilaterally. IMPRESSION: This patient is cleared for surgery. I will follow the patient along with you. I will see her postoperatively. Dictated By: NALDO WILLETT MD, ND/ALEX Conf#: [id number] DID#: [id number]
[2016-11-10] MEDS ORDERED: LABETALOL HCL 20MG INJ ONE ×2 (07:00→09:22)
[2016-11-10] MEDS ORDERED: VALS160T20 PO (07:27)
[2016-11-10 07:29] LABS: ADD UMIC NO; URINE BILIRUBIN (Dip) NEGATIVE (NEGATIVE); URINE BLOOD (Dip) NEGATIVE (NEGATIVE); URINE COLOR YELLOW (YELLOW); URINE GLUCOSE (Dip) NEGATIVE (NEGATIVE); URINE KETONES (Dip) NEGATIVE (NEGATIVE); URINE LEUKOCYTE ESTERASE (Dip) NEGATIVE (NEGATIVE); URINE NITRITE (Dip) NEGATIVE (NEGATIVE); URINE TOTAL PROTEIN (Dip) NEGATIVE (NEGATIVE); URINE UROBILINOGEN (Dip) 0.2 E.U./dL (0.1-1.0)
[2016-11-10] MEDS ORDERED: OXYC-209 PO (07:30)
[2016-11-10] MEDS ORDERED: OXYB10TA6 PO (07:32)
[2016-11-10] MEDS ORDERED: TIZA2TAB PO (07:33)
--- NOTE | 2016-11-10 08:50 | HPN ---
Date/Time of Note Date/Time of Note DATE: 11/10/16 TIME: 08:49 Interval H&P Admission Note Pt. seen H&P reviewed: No system changes GUANAKO BURTON MD Nov 10, 2016 08:49
[2016-11-10] MEDS ORDERED: POLYMYXIN/BACITRACIN 1L IRRIG ONE (09:03)
[2016-11-10] MEDS ORDERED: GELATIN SIZE 100 SPONGE ONE (09:03)
[2016-11-10] MEDS ORDERED: BUPIVACAINE 0.25% (MPF) 10 ML 10 ML VIAL ONE (09:03)
[2016-11-10] MEDS ORDERED: THROMBIN 5000 UNIT VIAL ONE (09:03)
[2016-11-10] MEDS ORDERED: PROPOFOL 20 ML ONE (09:19)
[2016-11-10] MEDS ORDERED: ROCURONIUM 50 MG INJ ONE (09:19)
[2016-11-10] MEDS ORDERED: LIDOCAINE 2% (SDV) 5 ML INJ ONE (09:19)
[2016-11-10] MEDS ORDERED: hydrALAzine 20 MG INJ IV PRN (09:30)
[2016-11-10] MEDS ORDERED: METOCLOPRAMIDE 10 MG INJ IV PRN (09:30)
[2016-11-10] MEDS ORDERED: FENTAnyl 50 MCG/ML VIAL IV PRN ×2 (09:30)
[2016-11-10] MEDS ORDERED: ONDANSETRON 4 MG INJ IV PRN ×2 (09:30→11:00)
[2016-11-10] MEDS ORDERED: MEPERIDINE 25 MG INJ IV PRN (09:30)
[2016-11-10] MEDS ORDERED: DIPHENHYDRAMINE 50 MG INJ IV PRN (09:30)
[2016-11-10] MEDS ORDERED: EPHEDrine SULFATE 50 MG/5 ML SYG IV PRN (09:30)
[2016-11-10] MEDS ORDERED: LABETALOL HCL 20MG INJ IV PRN (09:30)
[2016-11-10] MEDS ORDERED: HYDROmorphONE (0.2 MG/ML) 10ML SYG IV PRN (09:30)
[2016-11-10] MEDS ORDERED: FENTAnyl 50 MCG/ML VIAL ONE (09:52)
[2016-11-10] MEDS ORDERED: DEXAMETHASONE 4 MG/ML 1 ML INJ ONE (10:03)
[2016-11-10] MEDS ORDERED: ONDANSETRON 4 MG INJ ONE (10:04)
[2016-11-10] MEDS: DEXTROSE 5%-0.45% NACL 1,000 ML IV SCH ×3 (10:54→20:54)
[2016-11-10] MEDS ORDERED: TRIMETHOBENZAMIDE 100 MG/ML VIAL IM PRN (11:00)
[2016-11-10] MEDS ORDERED: NACL 0.9% 3 ML SYG IV SCH (11:00)
[2016-11-10] MEDS ORDERED: BETHANECHOL 25 MG TAB PO PRN (11:00)
[2016-11-10] MEDS ORDERED: AL HYDROX/MG HYDROX/SIMETH 30 ML CUP PO PRN (11:00)
[2016-11-10] MEDS ORDERED: ACETAMINOPHEN 325 MG TAB PO PRN (11:00)
[2016-11-10] MEDS ORDERED: DIAZEPAM 5 MG/ML SYG IM PRN (11:00)
[2016-11-10] MEDS ORDERED: HYDROCODONE/APAP (5/325) TAB PO PRN ×2 (11:00)
[2016-11-10] MEDS ORDERED: DIPHENHYDRAMINE 50 MG CAP PO PRN (11:00)
[2016-11-10] MEDS ORDERED: NALOXONE (0.4 MG/ML) INJ IV PRN (11:00)
[2016-11-10] MEDS ORDERED: ZOLPIDEM 5 MG TAB PO PRN (11:00)
[2016-11-10] MEDS ORDERED: PROCHLORPERAZINE 10 MG TAB PO PRN (11:00)
[2016-11-10] MEDS ORDERED: NEOSTIGMINE 3 MG/3 ML SYRINGE ONE (11:01)
[2016-11-10] MEDS ORDERED: GLYCOPYRROLATE 0.4 MG INJ ONE (11:01)
--- NOTE | 2016-11-10 11:02 | OPR ---
Date/Time of Note Date/Time of Note DATE: 11/10/16 TIME: 10:57 Operative Report Preoperative Diagnosis HNP L5-S1 right Postoperative Diagnosis Same Operation Performed Right hemilaminotomy L5 Microdiscectomy L5-S1 on the right Right hemilaminotomy L5 Microdiscectomy L5-S1 on the right Medial facetectomy and foraminotomies L5-S1 on the right Cosmetic wound closure (3 cm) Lateral localizing lumbar radiographs (2) Intraoperative nerve monitoring (1 hour) Surgeon: GUANAKO BURTON MD emergency veterinary assistant: MURALI SALINAS Anesthesia: general Anesthesiologist: KAYLEN HOFFMAN Estimated Blood Loss: 0 - 10 ml's Specimens Disk L5-S1 right Tubes/Drains Two medium Hemovacs Complications: None Complications None Pt Condition Post Procedure: stable Disposition: PACU Operative\Procedure Findings Moderate central HNP L5-S1 GUANAKO BURTON MD Nov 10, 2016 11:02
[2016-11-10] MEDS: HYDROmorphONE (0.2 MG/ML) 10ML SYG IV PRN ×4 (11:14→11:39)
[2016-11-10] MEDS: FENTAnyl 50 MCG/ML VIAL IV PRN ×4 (11:17→12:00)
[2016-11-10] MEDS: HYDROmorphONE 0.2 MG/ML PCA IV SCH ×2 (11:33→22:01)
--- NOTE | 2016-11-10 11:41 | OPR ---
DATE OF OPERATION: 11/10/2016 PREOPERATIVE DIAGNOSIS: Herniated disk, L5-S1, centrally and to the right. POSTOPERATIVE DIAGNOSIS: Herniated disk, L5-S1, centrally and to the right. OPERATIONS PERFORMED: 1. Right hemilaminotomy, L5. 2. Microdiskectomy, L5-S1 on the right. 3. Medial facetectomy and foraminotomy, L5-S1 on the right. 4. Cosmetic wound closure (3 cm). 5. Lateral localized lumbar radiographs (2). 6. Intraoperative nerve monitoring (1 hour). SURGEON: Kj Barrett MD DISABILITY COUNSELOR: Katja Nuñez PA-C ANESTHESIA: General endotracheal. ANESTHESIOLOGIST: Dr. Contreras ESTIMATED BLOOD LOSS: 10 mL - none replaced. DRAINS: Two medium Hemovac drains employed. COMPLICATIONS: None. PERTINENT HISTORY AND PHYSICAL: This is a 46-year-old female who sustained an injury to her back in the course of employment on 01/05/2012. She has had extensive care since that time, has remained s ymptomatic with back and right leg pain which has been unrelieved by conservative management. She h as undergone a number of diagnostic studies including an MRI of the lumbar spine which demonstrated a small to moderate central and right paracentral herniation of the L5-S1 disk. Treatment options w ere discussed with the patient, she elected to proceed with surgery. OPERATIVE FINDINGS AT SURGERY: A small to moderate central and right paracentral herniation of the L5-S1 disk was confirmed. The baseline intraoperative nerve monitoring revealed a decrease in the L 5 potential of 20% bilaterally, the S1 potential on the left of 20%, the S1 potential on the right o f 50%. These all returned to normal at the completion of surgery. OPERATIVE PROCEDURE: With the patient in supine position after satisfactory induction of general en dotracheal anesthesia by Dr. Contreras, the patient was turned to the prone kneeling position on the [facility] frame. All pressure points were carefully padded. The back was prepped and draped in usual st erile fashion. Athrombic pumps were applied to the legs below the knees and then venous stasis duri ng and after the procedure. Two spinal needles were placed next to what was felt to be the L4 and L 5 spinous processes, lateral roentgenogram was taken which confirmed anatomic localization. A 3.0 c m incision was then carried out midline over the spinous process of L5 through skin and subcutaneous tissue to the deep fascia after skin was infiltrated with 0.25% Marcaine without epinephrine for po stoperative analgesia. Superficial retractors were placed, and hemostasis secured with electrocaute ry. A fascial incision was made over the spinous process of L5 and a subperiosteal dissection fady ed out at L5-S1 on the right. Deep retractors were placed and deep hemostasis secured with electroc autery. A second intraoperative radiograph was taken with deep retractor at what was felt to be the L5-S1 interspace, and this was confirmed with second x-ray. A right hemilaminotomy at L5 was then carried out using a Leksell rongeur, Kerrison punches, and curettes. Ligamentum flavum was incised with sharp dissection. The operating microscope was moved into place. A medial facetectomy and for aminotomy was accomplished using small hand osteotome, mallet, Kerrison punches, and curettes. The S1 root was then mobilized medially and protected with Jax'Abe nerve retractor using microdissectio n technique. This revealed a herniation of the L5-S1 disk. A 15 blade knife was used to cut a rect angular window in the annulus and posterior longitudinal ligament, multiple degenerative disk fragme nts were harvested with pituitary rongeurs and sent to the laboratory for pathologic study. Additio nal fragments were harvested using Dane curettes. A thorough search of the floor of the canal wa s made with an arthroscopic probe. No additional fragments were encountered. Epidural hemostasis w as secured with bipolar electrocautery on a low setting. The anesthesiologist then asked to perform a Valsalva maneuver at 40 mmHg and no spinal fluid leakage was noted. The wound was then closed in layers over 2 medium Hemovac drains, one below the fascia and one above the fascia using #1 Vicryl [id number] approximating sutures in deep paralumbar musculature and deep fascia of the back, 2- 0 Vicryl subcutaneous approximating subQ tissue, and a 4-0 Vicryl subcuticular cosmetic closing sutu re on the skin. Dermabond and sterile compressive dressings were applied. The patient having ammy ated the procedure well, was then turned to the supine position onto her bed and extubated by Dr. Masoud bentley. She was transported to the recovery room in satisfactory condition. At the conclusion of the p rocedure, sponge, instrument, and needle counts were all correct. NEED FOR FIGURE REFINISHER AND REPAIRER: During this spinal surgical procedure, my it administrative assistant was used to retrac t and protect the spinal nerves and dural sac. My it administrative assistant also employed the suction catheters to e vacuate blood from the surgical field to improve visualization of the neural structures. The assista nt was medically necessary to facilitate the completion of the surgery in a safe and expeditious man ner. [facility] regulations, as well as hospital bylaws, preclude the use of non-licensed [facility] care personnel such as operating room technicians, to perform these functions. Throughout the procedure, neuromonitoring was carried out by [employer] in cluding EMG, SSEP, and MEP monitoring of the L3, L4, L5, and S1 nerve roots bilaterally along with s andrew cord potentials. These were interpreted by a neurologist employed by [employer]. Dictated By: KJ BARRETT MD TM/NTS Conf#: [id number] DID#: [id number] CC: NALDO WILLETT MD;*[facility]*
[2016-11-10] MEDS: CEFAZOLIN 1 GM/50 ML (PMX) 50 ML IVPB SCH ×3 (11:44→23:39)
--- NOTE | 2016-11-10 12:01 | RADRPT ---
PROCEDURE: Intraoperative XR. CLINICAL INDICATION: Intraoperative radiograph during L5-S1 microdiskectomy. TECHNIQUE: Spot intraoperative lateral lumbar x-ray image was provided. The images were reviewed on a high-resolution PACS workstation. COMPARISON: None available FINDINGS: Spot intraoperative lateral lumbar view were provided during L5-S1 microdiskectomy. The images demo nstrate metallic probes at the level of L4-5 and L5-S1. There is mild to moderate spondylosis at L5 -S1. IMPRESSION: 1. Spot intraoperative lateral lumbar view during L5-S1 microdiskectomy were provided. 2. Please see operative report of the same day for further information. RPTAT: DD .Alfredito Ramos MD, MD Date Time Electronically viewed and signed by .Alfredito Ramos MD, on 11/10/2016 12:01 .S/
--- NOTE | 2016-11-10 12:02 | RADRPT ---
PROCEDURE: Intraoperative XR. CLINICAL INDICATION: Intraoperative radiograph during L5-S1 microdiskectomy.. TECHNIQUE: Spot intraoperative lateral lumbar x-ray image was provided. The images were reviewed on a high-resolution PACS workstation. COMPARISON: None available FINDINGS: Spot intraoperative lateral lumbar view were provided duringL5-S1 microdiskectomy. The images demon strate without instrumentation at the level of L5-S1. There is stable mild to moderate spondylosis at this level. IMPRESSION: 1. Spot intraoperative lateral lumbar view during L5-S1 microdiskectomy were provided. 2. Please see operative report of the same day for further information. RPTAT: DD .Alfredito Ramos MD, MD Date Time Electronically viewed and signed by .Alfredito Ramos MD, on 11/10/2016 12:02 .S/
[2016-11-10] MEDS: DIAZEPAM 5 MG TAB PO PRN ×3 (13:43→18:44)
--- NOTE | 2016-11-10 14:11 | CONS ---
DATE OF ADMISSION: 11/10/2016 DATE OF CONSULTATION: TYPE OF CONSULTATION: Medical. Thank you, Dr. Barrett, for asking me to participate in the medical management of this patient. REASON FOR CONSULTATION: To manage the patient's hypertension, anxiety syndrome, chronic pain syndr ome. HISTORY OF PRESENT ILLNESS: This 46-year-old female underwent lumbar spine surgery today because of low back pain which was radiating down her right leg. The patient had failed medical therapy. She was seen by Dr. Barrett, and she agreed to have surgery. She had a herniated nucleus pulposus at the L5-S1 level on the right. She underwent a right hemilaminectomy of L5 and a microdiskectomy at the L5-S1 level on the right. She is now in the Orthopedic Medical floor. She is awake and alert. She denies pain. She says that she is not having any chest pain or shortness of breath. I did see the patient preoperatively, and her current medications are as follows: 1. Seroquel 25 mg at bedtime. 2. Levothyroxine 125 mcg a day. 3. Diovan 160 mg a day. 4. Linzess 290 mg once a day. 5. Prilosec 20 mg a day. 6. Colace 200 mg a day. 7. OxyContin 20 mg q. 12 hours. 8. Lyrica 150 mg twice a day. 9. Cymbalta 60 mg twice a day. 10. Klonopin 1 mg q. 8 hours p.r.n. panic attacks. 11. Percocet 10/325 q. 6 hours p.r.n. pain. 12. Robaxin 750 mg 2 tablets 3 times a day as needed for back spasms. PAST MEDICAL HISTORY: Remarkable for hypothyroidism, hypertension, migraine headaches, irritable isidro wel syndrome, peptic ulcer disease, diverticulosis, hemorrhoids, spinal stenosis, disk herniation, l umbar radiculopathy, fibromyalgia, chronic pain syndrome, insomnia, generalized anxiety disorder, de pression, and panic disorder. ALLERGIES: 1. SHELLFISH. 2. PLASTIC TAPE. PAST SURGICAL HISTORY: Laparoscopic gastric bypass in 2009, laparoscopic cholecystectomy in 2010, h ysterectomy and right oophorectomy in 2011, panniculectomy in 2014, left oophorectomy in 2017. FAMILY HISTORY: Father is . Mother is . Father of a gunshot wound, mother of ovarian cancer. SOCIAL HISTORY: The patient is a nonsmoker, drinks alcohol socially. Occupation: Disabled nurse. PHYSICAL EXAMINATION: GENERAL: At this time reveals a well-developed female in no apparent distress. She is awake and al ert. VITAL SIGNS: Blood pressure is 112/73, pulse of 88, O2 saturation 94% on 2 liter nasal cannula. HEENT: Head normocephalic. Eyes: Extraocular muscles intact. NOSE AND MOUTH: Normal. NECK: Supple. No neck vein distention. LUNGS: Clear to auscultation. HEART: Regular rhythm. No murmurs, gallops, or rubs. ABDOMEN: Soft, nontender. EXTREMITIES: No peripheral edema. IMPRESSION: The patient is stable postoperatively. Her blood pressure is in normal range. The pat ient did take her thyroid medication and blood pressure medication early this morning preoperatively . I will manage the patient's hypertension, hypothyroidism, generalized anxiety disorder, chronic p ain syndrome. I did discuss her medications with her. PLAN: 1. Resume some routine medications. 2. Check laboratory tests in the morning. 3. Postop lumbar spine surgery protocol. 4. I will follow the patient along with you medically. Dictated By: NALDO WILLETT MD, ND/ALEX Conf#: [id number] DID#: [id number]
[2016-11-10] MEDS: DOCUSATE SODIUM 100 MG CAP PO SCH (18:32)
[2016-11-10] MEDS: CEPASTAT LOZENGE MT PRN ×2 (18:39→18:44)
[2016-11-10] MEDS: DULOXETINE 30 MG CAP DR PO SCH (20:12)
[2016-11-10] MEDS: RANITIDINE 150 MG TAB PO SCH (20:12)
[2016-11-10] MEDS: PREGABALIN 75 MG CAP PO SCH (20:12)
[2016-11-10] MEDS ORDERED: QUETIAPINE 25 MG TAB PO SCH (21:00)
[2016-11-11 00:38] VITALS: BP 129/77; RESP 20
[2016-11-11] MEDS: CEFAZOLIN 1 GM/50 ML (PMX) 50 ML IVPB SCH (04:53)
[2016-11-11 05:05] VITALS: BP 104/59; PULSE 68; RESP 18
[2016-11-11 05:26] LABS: HEMATOCRIT 35.3 % (37.0-47.0); HEMOGLOBIN 11.5 g/dl (12.0-16.0)
[2016-11-11 05:57] LABS: CALCIUM 9.7 mg/dl (8.4-10.2); CREATININE 0.59 mg/dl (0.44-1.00); POTASSIUM 4.2 mmol/L (3.5-5.1)
[2016-11-11] MEDS: DEXTROSE 5%-0.45% NACL 1,000 ML IV SCH (06:54)
--- NOTE | 2016-11-11 07:12 | PN ---
Date/Time of Note Date/Time of Note DATE: 11/11/16 TIME: 07:10 Assessment/Plan Lines/Catheters IV [facility] Type (from [facility]): Peripheral IV Subjective 24 Hr Interval Summary The patient is postop day #1 following a microdiscectomy at L5-S1 on the right. She has had marked improvement in her preoperative right leg pain. She is afebrile. Her a.m. labs are unremarkable. Neurovascular structures are intact distally. Her Hemovac drain had minimal drainage and was removed. Her wound is clean and dry and was redressed. She will be mobilized as tolerated by physical therapy, and may be discharged later today if cleared by physical therapy. Discharge instructions and follow-up arrangements have been made. Exam/Review of Systems Vital Signs Vitals Vital Signs Date Time Temp Pulse Resp B/P Pulse Ox O2 Delivery O2 Flow Rate FiO2 11/11/16 05:05 18 11/11/16 05:05 98.0 68 104/59 98 Nasal Cannula 2.0 Intake and Output 11/10/16 11/10/16 11/11/16 15:00 23:00 07:00 Intake Total 1000 ml 250 ml 2230 ml Output Total 72 ml 1980 ml Balance 928 ml 250 ml 250 ml Results Result Diagram: 11/11/16 0445 11/11/16 0445 GUANAKO BURTON MD Nov 11, 2016 07:12
[2016-11-11] MEDS ORDERED: LEVOTHYROXINE 125 MCG TAB PO SCH (07:20)
[2016-11-11 07:42] VITALS: BP 122/67; RESP 17
[2016-11-11] MEDS ORDERED: BETHANECHOL 25 MG TAB PO PRN (08:00)
[2016-11-11] MEDS ORDERED: VALSARTAN 160 MG TAB PO SCH (09:00)
[2016-11-11] MEDS ORDERED: ASCORBIC ACID 500 MG TAB PO SCH (09:00)
[2016-11-11] MEDS ORDERED: DOCUSATE SODIUM 100 MG CAP PO SCH (09:00)
[2016-11-11] MEDS: DULOXETINE 30 MG CAP DR PO SCH (09:19)
[2016-11-11] MEDS: DOCUSATE SODIUM 100 MG CAP PO SCH (09:19)
[2016-11-11] MEDS: FERROUS SULFATE (EC) 325 MG TAB PO SCH ×2 (09:19→12:49)
[2016-11-11] MEDS: PREGABALIN 75 MG CAP PO SCH (09:19)
[2016-11-11] MEDS: RANITIDINE 150 MG TAB PO SCH (09:20)
--- NOTE | 2016-11-11 11:04 | PDOCDIS ---
Discharge Instructions CONDITION Patient Condition: Good HOME CARE INSTRUCTIONS: Diet Instructions: Reduced Calorie ACTIVITY: Activity Restrictions: Slowly Increase Activity Rest between Activity Avoid heavy lifting Avoid Heavy Housework Weight Bearing Bathing Restrictions: Shower FOLLOW UP/APPOINTMENTS Appointments NALDO Ivy MD Nov 11, 2016 11:04
--- NOTE | 2016-11-11 12:49 | OPPN ---
Date/Time of Note Date/Time of Note DATE: 11/11/16 TIME: 12:48 Post-Anesthesia Notes Post-Anesthesia Note Last documented vital signs Vital Signs Date Time Temp Pulse Resp B/P Pulse Ox O2 Delivery O2 Flow Rate FiO2 11/11/16 11:02 16 11/11/16 07:42 98.5 63 122/67 98 11/11/16 05:05 Nasal Cannula 2.0 Activity: WNL Respiratory function: WNL Cardiovascular function: WNL Mental status: Baseline Pain reasonably controlled: Yes Hydration appropriate: Yes Nausea/Vomiting absent: Yes Comments patient to be discharged today. satisfactory recovery from anesthesia KAYLEN HOFFMAN Nov 11, 2016 12:49
--- NOTE | 2016-11-11 14:21 | CONS ---
Date/Time of Note Date/Time of Note DATE: 11/11/16 TIME: 14:19 Assessment/Plan Assessment/Plan Chief Complaint/Hosp Course 1. She is 1 day postop a lumbar spine surgery. She is doing well. 2. Her vital signs and laboratory tests today are acceptable and she can be discharged to home today. 3. I will discharge patient today. Problems: Consultation Date/Type/Reason Admit Date/Time Nov 10, 2016 at 06:20 Initial Consult Date 24 HR Interval Summary Free Text/Dictation She is 1 day postop a lumbar spine surgery. She is feeling well this morning. She has been up walking with physical therapy. Constitutional: improved, no complaints Exam/Review of Systems Vital Signs Vitals Vital Signs Date Time Temp Pulse Resp B/P Pulse Ox O2 Delivery O2 Flow Rate FiO2 11/11/16 11:02 16 11/11/16 07:42 98.5 63 122/67 98 11/11/16 05:05 Nasal Cannula 2.0 Intake and Output 11/10/16 11/10/16 11/11/16 15:00 23:00 07:00 Intake Total 1000 ml 250 ml 2230 ml Output Total 72 ml 1980 ml Balance 928 ml 250 ml 250 ml Exam Constitutional: alert, obese, oriented Respiratory: clear to auscultation, normal air movement Cardiovascular: regular rate and rhythm Gastrointestinal: soft Musculoskeletal: nl extremities to inspection Results Result Diagram: 11/11/16 0445 11/11/16 0445 Results 24 hrs Laboratory Tests Test 11/11/16 04:45 Hemoglobin 11.5 L Hematocrit 35.3 L Sodium Level 143 Potassium Level 4.2 Chloride Level 106 Carbon Dioxide Level 28 Anion Gap 13 Blood Urea Nitrogen 7 Creatinine 0.59 Glucose Level 89 Calcium Level 9.7 NALDO WILLETT MD Nov 11, 2016 14:21
== END 2016-11-11 12:51 | disposition home or self-care (01) | DRG 520 ==
LOC: REC 06:20 → EDSEX 10:00 → EDSTATUS 10:00 → MS1 12:43
PROVIDERS: ADMIT Orthopaedic Surgery; ATTEND Orthopaedic Surgery
PROC: 0SB20ZZ Excision of Lumbar Vertebral Disc, Open Approach (ICD-10-PCS; principal; 2016-11-10 10:00)
DX: M51.16 Intervertebral disc disorders with radiculopathy, lumbar region (principal); I10 Essential (primary) hypertension; E03.9 Hypothyroidism, unspecified; F32.9 Major depressive disorder, single episode, unspecified
CPT/HCPCS: 72020; 80048; 81003; 84703; 85014; 85018; 86850; 86900; 86901; 86920; 97116; 97162; 97530; J0690; J1100; J1170; J2175; J2405; J2710; J3010; J7042; J7120

== ENCOUNTER 2018-10-07 05:25 | Day surgery (SDC) | payer MEDICARE, BC ==
[2018-10-04 11:11] VITALS: BMI 40.3
[2018-10-07] VITALS (32 sets, daily range): BP systolic 91–143; BP diastolic 53–83; PULSE 81–109; RESP 12–24; Ht 168.9 cm; Wt 113.4 kg
[~2018-10-07] VITALS: Ht 168.9 cm; Wt 113.4 kg
[~2018-10-07 05:25] MED LIST changes: -CEFAZOLIN 2 GM/50 ML (PMX) 50 ML IVPB SCH; -CLON-412 PO; -DEC4 PO; +FAMO40TA5 PO; -GABA-526 PO; -LACTATED RINGER'S 1,000 ML IV SCH; -LEVO125T PO; +LEVO125T71 PO; -LINA290C PO; +LYRI200 PO; -METH-70 PO; -METOPROLOL PO; +MORP15TA92 PO; -OMEP20CA16 PO; +POLY17PO6 PO; -PREG150C PO; -QUET25TA26 PO; +TIZA4TAB PO; -TIZANADINE PO; -VICODIN PO
--- NOTE | 2018-10-07 05:57 | HPN ---
Date/Time of Note Date/Time of Note DATE: 10/07/18 TIME: 05:57 Interval H&P Admission Note Pt. seen H&P reviewed: No system changes JAMIE DOWD MD October 07, 2018 05:57
--- NOTE | 2018-10-07 05:58 | OPR ---
Date/Time of Note Date/Time of Note DATE: 10/07/18 TIME: 05:57 Operative Report Procedure Date: October 07, 2018 Preoperative Diagnosis Right abductor tendon tear Postoperative Diagnosis 1. Right massive gluteus medius and gluteus minimus tearing with atrophy 2. Right hip chronic trochanteric bursitis Operation/Procedure Performed 1. Right hip open gluteus chula transfer 2. Right hip open trochanteric bursectomy 3. Right hip injection of PRP solution Surgeon see signature line [employer]ber Devan Babin PA-C Anesthesia Type: general Estimated Blood Loss: 10 - 50 ml's Transfusion none Specimen None Grafts/Implants See op note Complications none Pt Condition Post Procedure: stable Disposition: PACU Procedure Description MOVING WORKER SURGEON: Devan Babin PA-C was asked to be present at my request as a result of the complexity associated with this procedure including position ing of the extremity, as well as exposure of the neurovascular structures and protection of those structures. In my opinion, the assistance offered by a clinical technician is insufficient and he should be compensated for his time. PROCEDURE IN DETAIL: Following the administration of general endotracheal anesthesia supplemented with a local anesthetic, the right forearm was then sterilely prepped and 60 cc of blood were aspirated from the forearm. The blood was then passed off to the equal opportunity representative from the company for preparation of the PRP solution. The patient was then placed in the left lateral decubitus position after care fully turning her. An axillary fold was placed. Sterile prep and drape was then undertaken. A lateral incision was then made over the trochanteric prominence of the right hip. The incision was carried through the subcutaneous tissues exposing the denise otibial band. The IT band was then incised posterior to the tensor and up to the area proximally at the origin. A severe amount of bursal reactive tissue was then excised. A thorough bursectomy was completed. Once the bursectomy was completed, the abductor mechanism was visualized. A portion of the gluteus medius posteriorly was intact. The more anterior gluteus, was significantly atrophic. In addition, the gluteus minimus was torn and retracted. A debridement was completed over the trochanteric prominence and several osteophytes were resected, creating a bloody cortical cancellus bed.. The lateral aspect of the trochanter was then curetted down to a bleeding cortical cancellous bed. The tendon of the gluteus medius and minimus were then completely mobilized. In addition, the vision in the IT band was then extended posteriorly into the abductor (gluteus chula). The gluteus chula was then incised and a portion of it was elevated in a flap. The flap was then mobilized and placed across the gluteus medius in order to create a transfer. Approximately one third of the gluteus chula was transferred anteriorly. At this point two 4.5 mm, double loaded titanium anchors were then impacted into the tuberosity. The sutures were then passed in a mattress fashion through the abductor musculature well as the gluteus chula transfer. This incorporated both the gluteus minimus and gluteus medius tendons. All the closure of the entire construct was completed. The previously prepared PRP solution was injected in the sub-gluteal region in the area of the repair. The abductor was then reapproximated solidly. The wound was thoroughly irrigated. The iliotibial band was then closed using a running #0 and #2 permanent suture. The wound was then closed in layers and a Prenio for the final cover. This was watertight. Estimated blood loss was procedure was 50 cc. JAMIE DOWD MD October 07, 2018 05:58
[2018-10-07] MEDS ORDERED: TRANEXAMIC ACID 1GM/100ML(PMX) 100 ML IVPB SCH (06:00)
[2018-10-07] MEDS ORDERED: BUPIVACAINE 0.5% (SDV) 30 ML, morphine SULFATE (PF) 8 MG, EPINEPHrine 0.3 MG, KETOROLAC... IRR SCH ×7 (06:00)
[2018-10-07] MEDS ORDERED: DEXAMETHASONE 1 MG TAB PO SCH (06:00)
[2018-10-07] MEDS ORDERED: CEFAZOLIN 2 GM/50 ML (PMX) 50 ML IVPB SCH (06:00)
[2018-10-07] MEDS ORDERED: GABAPENTIN 300 MG CAP PO SCH (06:00)
[2018-10-07] MEDS ORDERED: SOD CHLORIDE 0.9% 100 ML, TRANEXAMIC ACID 3,000 MG IRR SCH ×2 (06:00)
--- NOTE | 2018-10-07 06:47 | PREAC ---
Date/Time of Note Date/Time of Note DATE: 10/07/18 TIME: 06:45 Anesthesia Eval and Record Evaluation Time Pre-Procedure Interview DATE: 10/07/18 TIME: 06:45 Age 47 Sex female NPO: 8 hrs Preoperative diagnosis Rt Hip abductor tear Planned procedure Rt Hip abductor repair Past Medical History Past Medical History: Includes Cardio: HTN, Dyslipidemia Endo: Hypothyroid GI: Morbid obesity Surgery & Anesthesia Issues No known issue Meds Anticoagulation: No Beta William within 24 hr: No Reason Beta William not given: Pt. not on B-William Reported Medications Levothyroxine Sodium* (Levoxyl*) 125 Mcg Tablet, 125 MCG PO BEFORE BREAKFAST, #30 TAB 10/04/18 Polyethylene Glycol* (Miralax*) 17 Gm Powd.pack, 17 GM PO DAILY, #30 PACKET 10/04/18 Docusate Sodium* (Colace*) 100 Mg Capsule, 100 MG PO BID, #60 CAP 10/04/18 Famotidine* (Famotidine*) 40 Mg Tablet, 40 MG PO HS, #30 TAB 10/04/18 Valsartan* (Diovan*) 160 Mg Tablet, 160 MG PO BID, TAB 10/04/18 Tizanidine Hcl* (Tizanidine Hcl*) 4 Mg Tablet, 4-8 MG PO Q12 PRN for SPASTICITY, TAB 10/04/18 Morphine Sulfate* (Ms Contin*) 15 Mg Tablet.sa, 7.5-15 MG PO Q6 PRN for BREAKTHROUGH PAIN, TAB 10/04/18 Oxycodone Hcl* (Oxycontin*) 20 Mg Tab.er.12h, 20 MG PO Q12, TAB 10/04/18 Duloxetine Hcl* (Cymbalta*) 60 Mg Capsule.dr, 120 MG PO DAILY, CAP 10/04/18 Pregabalin* (Lyrica*) 200 Mg Capsule, 200 MG PO BID, CAP 10/04/18 Discontinued Reported Medications Tizanidine Hcl* (Tizanidine Hcl*) 2 Mg Tablet, 2 MG PO Q12 PRN for SPASTICITY, TAB 11/10/16 Oxybutynin Chloride* (Ditropan* XL) 10 Mg Tab.er.24, 10 MG PO QHS, TAB.SA 11/10/16 Oxycodone HCl/Acetaminophen (Percocet 10-325 mg Tablet) 1 Each Tablet, 1 EACH PO Q6 PRN for BREAKTHROUGH PAIN, TAB 11/10/16 Valsartan* (Diovan*) 160 Mg Tablet, 160 MG PO BID, TAB 11/10/16 Clonazepam* (Klonopin*) 1 Mg Tablet, 1 MG PO Q8H PRN for ANXIETY, TAB 07/21/16 Duloxetine Hcl* (Cymbalta*) 60 Mg Capsule.dr, 120 MG PO DAILY, CAP 07/21/16 Pregabalin* (Lyrica*) 150 Mg Capsule, 150 MG PO BID, CAP 07/21/16 Oxycodone Hcl* (Oxycontin*) 20 Mg Tab.er.12h, 20 MG PO Q12, TAB 07/21/16 Docusate Sodium* (Colace*) 100 Mg Capsule, 200 MG PO DAILY, #30 CAP 07/21/16 Omeprazole* (Omeprazole*) 20 Mg Capsule.dr, 20 MG PO DAILY, #30 CAP 07/21/16 Quetiapine Fumarate* (Seroquel*) 25 Mg Tablet, 25 MG PO HS, #30 TAB 07/21/16 Levothyroxine Sodium* (Synthroid*) 125 Mcg Tablet, 125 MCG PO AC BREAKFAST, TAB 12/15/13 Current Medications Cefazolin Sodium/ Dextrose 50 ml @ 100 mls/hr PRE-OP IVPB ; Start 10/07/18 at 06:00; Stop 10/07/18 at 16:00 Tranexamic Acid 100 ml @ 200 mls/hr Pre-op IVPB ; Start 10/07/18 at 06:00; Stop 10/07/18 at 16:00 Sodium Chloride/ Tranexamic Acid INTRA-OP IRR ; Start 10/07/18 at 06:00; Stop 10/07/18 at 16:00 Bupivacaine HCl/ Morphine Sulfate/ Epinephrine/ Ketorolac Tromethamine/ Clonidine/Sodium Chloride/ Vancomycin HCl INTRA-OP IRR ; Start 10/07/18 at 06:00; Stop 10/07/18 at 13:00 Dexamethasone (Decadron) 2 mg PREOP PO Last administered on 10/07/18at 06:22; Admin Dose 2 MG; Start 10/07/18 at 06:00; Stop 10/07/18 at 16:00 Gabapentin (Neurontin) 300 mg ONCE PO Last administered on 10/07/18at 06:23; Admin Dose 300 MG; Start 10/07/18 at 06:00; Stop 10/07/18 at 16:00 Lactated Ringer's 1,000 ml @ 25 mls/hr Q24H IV ; Start 10/07/18 at 07:00 Meds reviewed: Yes Allergies Coded Allergies: shellfish derived (Unverified Allergy, Unknown, BREATHING RASH HIVES, 10/04/18) Allergies Reviewed: Yes Labs/Studies Labs Reviewed: Reviewed by anesthesiologist test: Negative Studies: ECG Pre-procedure Exam Last vitals Vital Signs Date Temp Pulse Resp B/P (MAP) Pulse Ox O2 O2 Flow FiO2 Time Delivery Rate 10/07/18 97.0 94 16 119/83 96 Room Air 06:33 (95) Airway: Adequate mouth opening, Adequate thyromental dist Mallampati: Mallampati II Teeth: Normal Lung: Normal Heart: Normal ASA Physical Status ASA physical status: 3 Emergency: None Planned Anesthetic General/MAC: LMA Planned Pain Management Parenteral pain med, Local by surgeon Pre-operative Attestations Prior to commencing anesthesia and surgery, the patient was re-evaluated, there was verification of: *The patient's identity *The results of appropriate recent lab work and preoperative vital signs *The above evaluation not changing prior to induction *Anesthetic plan, risk benefits, alternative and complications discussed with patient/family; questions answered; patient/family understands, accepts and wishes to proceed. SERA BARRETO MD October 07, 2018 06:46
[2018-10-07] MEDS ORDERED: MIDAZOLAM 1 MG/ML 2 ML INJ ONE (06:57)
[2018-10-07] MEDS ORDERED: FENTAnyl 50 MCG/ML VIAL ONE ×3 (06:58→08:34)
[2018-10-07] MEDS ORDERED: LACTATED RINGER'S 1,000 ML IV SCH (07:00)
[2018-10-07] MEDS ORDERED: THROMBIN (BOVINE) 5,000 UNIT VIAL TP ONE (07:35)
[2018-10-07] MEDS ORDERED: CA CHLORIDE (GM) 10% 10 ML INJ ONE (07:35)
--- NOTE | 2018-10-07 08:41 | PDOCDIS ---
Discharge Instructions DIAGNOSIS Discharge Diagnosis Gluteus medius and minimus tears CONDITION [id number] Patient Condition: [id number] Good HOME CARE INSTRUCTIONS: [id number] Diet Instructions: [id number] Regular ACTIVITY: [id number] Activity Restrictions: [id number] Slowly Increase Activity Keep Limb Elevated [id number] Bathing Restrictions: [id number] Shower FOLLOW UP/APPOINTMENTS Follow-up Plan 2 weeks in the office SCHOOL/WORK RELEASE May return to School/Work with: With Restrictions School/Work Release Comment: Foot flat weightbearing for 4 weeks with walker JAMIE DOWD MD October 07, 2018 08:41
[2018-10-07] MEDS ORDERED: PROPOFOL 20 ML ONE (08:47)
[2018-10-07] MEDS ORDERED: ROCURONIUM 50 MG INJ ONE (08:47)
[2018-10-07] MEDS ORDERED: LIDOCAINE 2% (SDV) 5 ML INJ ONE (08:47)
[2018-10-07] MEDS ORDERED: ONDANSETRON 4 MG INJ ONE (08:48)
[2018-10-07] MEDS ORDERED: CEFAZOLIN 1 GM INJ ONE (08:48)
[2018-10-07] MEDS ORDERED: NON-FORMULARY/PATIENT OWN MED (Valsartan* (Diovan*) 160 MG) PO SCH (09:00)
[2018-10-07] MEDS ORDERED: NACL 0.9% 3 ML SYG IV SCH (09:00)
[2018-10-07] MEDS ORDERED: ONDANSETRON 4 MG INJ IV PRN ×2 (09:00→09:30)
[2018-10-07] MEDS ORDERED: oxyCODONE 5 MG TAB PO PRN ×2 (09:00)
[2018-10-07] MEDS ORDERED: DIPHENHYDRAMINE 50 MG INJ IV PRN ×2 (09:00→09:30)
[2018-10-07] MEDS ORDERED: TIZANIDINE 4 MG TAB PO PRN (09:00)
[2018-10-07] MEDS ORDERED: MAGNESIUM HYDROXIDE 30ML CUP PO PRN (09:00)
--- NOTE | 2018-10-07 09:20 | PAC ---
Date/Time of Note Date/Time of Note DATE: 10/07/18 TIME: 09:20 Post-Anesthesia Notes Post-Anesthesia Note Last documented vital signs Vital Signs Date Temp Pulse Resp B/P (MAP) Pulse Ox O2 O2 Flow FiO2 Time Delivery Rate 10/07/18 97.0 94 16 119/83 96 Room Air 06:33 (95) Activity: WNL Respiratory function: WNL Cardiovascular function: WNL Mental status: Baseline Pain reasonably controlled: Yes Hydration appropriate: Yes Nausea/Vomiting absent: Yes Comments BP:134/67, P:78, Spo2:100%, T:98,7 SERA BARRETO MD October 07, 2018 09:20
[2018-10-07] MEDS ORDERED: MEPERIDINE 25 MG INJ IV PRN (09:30)
[2018-10-07] MEDS ORDERED: KETOROLAC 30 MG INJ IV PRN (09:30)
[2018-10-07] MEDS ORDERED: FENTAnyl 50 MCG/ML VIAL IV PRN (09:30)
[2018-10-07] MEDS ORDERED: METOCLOPRAMIDE 10 MG INJ IV PRN (09:30)
[2018-10-07] MEDS ORDERED: HYDROmorphONE 1 MG/5 ML IV SYRINGE IV PRN ×2 (09:30)
[2018-10-07] MEDS ORDERED: CEFAZOLIN 1 GM/50 ML (PMX) 50 ML IVPB ONE (09:32)
[2018-10-07] MEDS ORDERED: HYDROmorphONE 1 MG/5 ML IV SYRINGE IV ONE (09:34)
[2018-10-07] MEDS: ACETAMINOPHEN 1000MG/100ML IV 100 ML IVPB SCH ×2 (09:46→17:00)
[2018-10-07] MEDS: CEFAZOLIN 1 GM/50 ML (PMX) 50 ML IVPB SCH (10:50)
[2018-10-07] MEDS: SENNA/DOCUSATE NA (8.6MG/50MG) TAB PO SCH ×2 (11:30→21:00)
[2018-10-07] MEDS: LOSARTAN 50 MG TAB PO SCH ×2 (11:30→21:00)
[2018-10-07] MEDS ORDERED: DULOXETINE 30 MG CAP DR PO SCH ×3 (11:30→23:00)
[2018-10-07] MEDS: PREGABALIN 100 MG CAP PO SCH ×2 (11:30→21:00)
[2018-10-07] MEDS: LACTATED RINGER'S 1,000 ML IV SCH ×2 (11:56→18:17)
[2018-10-07] MEDS: DEXAMETHASONE 2 MG TAB PO SCH ×2 (12:19→18:04)
[2018-10-07] MEDS: POLYETHYLENE GLYCOL 17 GM PACKET PO SCH (12:19)
[2018-10-07] MEDS: morphine (ER) 15 MG TAB PO PRN ×2 (14:09→21:00)
[2018-10-07] MEDS: HYDROmorphONE 1 MG/ML SYG IV PRN ×2 (18:11→22:59)
[2018-10-07] MEDS ORDERED: FAMOTIDINE 20 MG TAB PO SCH (21:00)
[2018-10-07] MEDS ORDERED: ZOLPIDEM 5 MG TAB PO PRN (21:00)
[2018-10-08] VITALS: BP 119/63; PULSE 78; RESP 20
[2018-10-08] MEDS: DEXAMETHASONE 2 MG TAB PO SCH ×2 (01:06→06:17)
[2018-10-08] MEDS: ACETAMINOPHEN 1000MG/100ML IV 100 ML IVPB SCH (01:06)
[2018-10-08] MEDS: oxyCODONE 5 MG TAB PO PRN ×2 (01:06→06:17)
[2018-10-08] MEDS: CEFAZOLIN 1 GM/50 ML (PMX) 50 ML IVPB SCH ×2 (01:07→08:29)
[2018-10-08] MEDS: LACTATED RINGER'S 1,000 ML IV SCH (02:44)
[2018-10-08] MEDS: morphine (ER) 15 MG TAB PO PRN (04:45)
--- NOTE | 2018-10-08 06:20 | PN ---
Date/Time of Note Date/Time of Note DATE: 10/08/18 TIME: 06:19 Subjective Awake and alert, with no complaints. Objective Vitals Vital Signs Date Temp Pulse Resp B/P (MAP) Pulse Ox O2 O2 Flow FiO2 Time Delivery Rate 10/08/18 98.1 78 20 119/63 94 00:00 (81) 10/07/18 Nasal 19:40 Cannula 10/07/18 2.0 11:45 Intake and Output 10/07/18 10/07/18 10/08/18 1515:00 23:00 07:00 IntakeIntake Total 1150 ml 500 ml 400 ml OutputOutput Total 10 ml BalanceBalance 1140 ml 500 ml 400 ml Wound clean and dry. Neurologically intact, with no signs DVT Medications Medications Current Medications Famotidine (Pepcid) 40 mg HS PO Last administered on 10/07/18at 21:00; Admin Dose 40 MG; Start 10/07/18 at 21:00 Levothyroxine Sodium (Synthroid) 125 mcg BEFORE BREAKFAST PO Last administered on 10/08/18 06:17; Admin Dose 125 MCG; Start 10/08/18 at 07:00 Morphine Sulfate (Ms Contin (Er)) 15 mg Q6H PRN PO BREAKTHROUGH PAIN Last administered on 10/08/18 04:45; Admin Dose 15 MG; Start 10/07/18 at 09:00 Polyethylene Glycol (Miralax) 17 gm DAILY PO Last administered on 10/07/18 12:19; Admin Dose 17 GM; Start 10/07/18 at 11:30 Pregabalin (Lyrica) 200 mg BID PO Last administered on 10/07/18 21:00; Admin Dose 200 MG; Start 10/07/18 at 11:30 Tizanidine HCl (Zanaflex) 6 mg Q12H PRN PO SPASTICITY; Start 10/07/18 at 09:00 Lactated Ringer's 1,000 ml @ 100 mls/hr Q10H IV Last administered on 10/07/18at 11:56; Admin Dose 100 MLS/HR; Start 10/07/18 at 08:34 Cefazolin Sodium 50 ml @ 100 mls/hr Q8H IVPB Last administered on 10/08/18at 01:07; Admin Dose 100 MLS/HR; Start 10/07/18 at 17:00; Stop 10/08/18 at 09:29 Senna/Docusate Sodium (Senokot-S) 1 tab BID PO ; Start 10/07/18 at 11:30 Simethicone (Mylicon) 80 mg TID PRN PO .GAS; Start 10/07/18 at 09:00 Magnesium Hydroxide (Milk Of Mag) 30 ml BID PRN PO .CONSTIPATION; Start 10/07/18 at 09:00 Magnesium Hydroxide (Milk Of Mag) 30 ml HS PO ; Start 10/09/18 at 21:00 Oxycodone HCl (Roxicodone) 15 mg Q4H PRN PO .PAIN Last administered on 10/08/18at 06:17; Admin Dose 15 MG; Start 10/07/18 at 09:00 Oxycodone HCl (Roxicodone) 10 mg Q4H PRN PO .PAIN; Start 10/07/18 at 09:00 Oxycodone HCl (Roxicodone) 5 mg Q4H PRN PO .PAIN; Start 10/07/18 at 09:00 Hydromorphone HCl (Dilaudid) 1 mg Q4H PRN IV .BREAKTHROUGH PAIN Last administered on 10/07/18at 22:59; Admin Dose 1 MG; Start 10/07/18 at 09:00 Ondansetron HCl (Zofran Inj) 4 mg Q6H PRN IV NAUSEA/VOMITING; Start 10/07/18 at 09:00 Diphenhydramine HCl (Benadryl) 25 mg Q6H PRN IV .PRURITUS; Start 10/07/18 at 09:00 Zolpidem Tartrate (Ambien) 10 mg HS PRN PO .INSOMNIA; Start 10/07/18 at 21:00 IV Flush (NS 3 ml) 3 ml per protocol IV ; Start 10/07/18 at 09:00 Aspirin (Ecotrin) 325 mg DAILY PO ; Start 10/08/18 at 09:00 Losartan Potassium (Cozaar) 100 mg BID PO Last administered on 10/07/18at 21:00; Admin Dose 100 MG; Start 10/07/18 at 11:30 Duloxetine HCl (Cymbalta) 120 mg QHS PO Last administered on 10/07/18at 21:01; Admin Dose 120 MG; Start 5/9/19 at 21:00 VTE Prophylaxis Risk score (from Nsg)>0 risk: 5 SCD applied (from Ns): Yes Lines/Catheters IV Catheter Type: Saline Lock Pearl in Place: No Assessment/Plan Assessment/Plan A: s/p abductor transfer P: PT this AM and then D/c home. Follow up in two weeks JAMIE DOWD MD October 08, 2018 06:20
--- NOTE | 2018-10-08 06:21 | DS ---
Date/Time of Note Date/Time of Note DATE: 10/08/18 TIME: 06:20 Discharge Summary Admission/Discharge Info Admit Date/Time 10/07/18 Discharge Date/Time 10/08/18 Discharge Diagnosis Gluteus medius and minimus tears Patient Condition: Good Hospital Course Patient was admitted and underwent uncomplicated procedure. She will undergo PT this AM and then D/c home. Follow up in two weeks Home Meds Reported Medications Levothyroxine Sodium* (Levoxyl*) 125 Mcg Tablet, 125 MCG PO BEFORE BREAKFAST, #30 TAB 10/04/18 Polyethylene Glycol* (Miralax*) 17 Gm Powd.pack, 17 GM PO DAILY, #30 PACKET 10/04/18 Docusate Sodium* (Colace*) 100 Mg Capsule, 100 MG PO BID, #60 CAP 10/04/18 Famotidine* (Famotidine*) 40 Mg Tablet, 40 MG PO HS, #30 TAB 10/04/18 Valsartan* (Diovan*) 160 Mg Tablet, 160 MG PO BID, TAB 10/04/18 Tizanidine Hcl* (Tizanidine Hcl*) 4 Mg Tablet, 4-8 MG PO Q12 PRN for SPASTICITY, TAB 10/04/18 Morphine Sulfate* (Ms Contin*) 15 Mg Tablet.sa, 7.5-15 MG PO Q6 PRN for BR EAKTHROUGH PAIN, TAB 10/04/18 Oxycodone Hcl* (Oxycontin*) 20 Mg Tab.er.12h, 20 MG PO Q12, TAB 10/04/18 Duloxetine Hcl* (Cymbalta*) 60 Mg Capsule.dr, 120 MG PO DAILY, CAP 10/04/18 Pregabalin* (Lyrica*) 200 Mg Capsule, 200 MG PO BID, CAP 10/04/18 Discontinued Reported Medications Tizanidine Hcl* (Tizanidine Hcl*) 2 Mg Tablet, 2 MG PO Q12 PRN for SPASTICITY, TAB 11/10/16 Oxybutynin Chloride* (Ditropan* XL) 10 Mg Tab.er.24, 10 MG PO QHS, TAB.SA 11/10/16 Oxycodone HCl/Acetaminophen (Percocet 10-325 mg Tablet) 1 Each Tablet, 1 EACH PO Q6 PRN for BREAKTHROUGH PAIN, TAB 11/10/16 Valsartan* (Diovan*) 160 Mg Tablet, 160 MG PO BID, TAB 11/10/16 Clonazepam* (Klonopin*) 1 Mg Tablet, 1 MG PO Q8H PRN for ANXIETY, TAB 07/21/16 Duloxetine Hcl* (Cymbalta*) 60 Mg Capsule.dr, 120 MG PO DAILY, CAP 07/21/16 Pregabalin* (Lyrica*) 150 Mg Capsule, 150 MG PO BID, CAP 07/21/16 Oxycodone Hcl* (Oxycontin*) 20 Mg Tab.er.12h, 20 MG PO Q12, TAB 07/21/16 Docusate Sodium* (Colace*) 100 Mg Capsule, 200 MG PO DAILY, #30 CAP 07/21/16 Omeprazole* (Omeprazole*) 20 Mg Capsule.dr, 20 MG PO DAILY, #30 CAP 07/21/16 Quetiapine Fumarate* (Seroquel*) 25 Mg Tablet, 25 MG PO HS, #30 TAB 07/21/16 Levothyroxine Sodium* (Synthroid*) 125 Mcg Tablet, 125 MCG PO AC BREAKFAST, TAB 12/15/13 Follow-up Plan 2 weeks in the office Primary Care Provider Not On Staff Doctor JAMIE DOWD MD October 08, 2018 06:21
[2018-10-08] MEDS ORDERED: LEVOTHYROXINE 125 MCG TAB PO SCH (07:00)
[2018-10-08 07:32] VITALS: BP 126/76; PULSE 73; RESP 18
[2018-10-08] MEDS: SENNA/DOCUSATE NA (8.6MG/50MG) TAB PO SCH (08:28)
[2018-10-08] MEDS: LOSARTAN 50 MG TAB PO SCH (08:29)
[2018-10-08] MEDS: POLYETHYLENE GLYCOL 17 GM PACKET PO SCH (08:29)
[2018-10-08] MEDS: PREGABALIN 100 MG CAP PO SCH (08:29)
[2018-10-08] MEDS ORDERED: ASPIRIN (EC) 325 MG TAB PO SCH (09:00)
[2018-10-09] MEDS ORDERED: MAGNESIUM HYDROXIDE 30ML CUP PO SCH (21:00)
== END 2018-10-08 11:16 | disposition home or self-care (01) ==
LOC: SDS 05:25 → REC 08:34 → UNDOADMIN 08:34 → MS1 09:08 → REC 10:48 → MS1 21:34 → REC 22:39 → SDS 10-08 11:16
PROVIDERS: ATTEND Orthopaedic Surgery
DX: S76.211D Strain of adductor muscle, fascia and tendon of right thigh, subsequent encounter (principal); X58.XXXD Exposure to other specified factors, subsequent encounter; E03.9 Hypothyroidism, unspecified; I10 Essential (primary) hypertension
CPT/HCPCS: 27062; 72170; 84703; 86999; 97161; J0131; J0171; J0690; J0735; J1170; J1885; J2250; J2274; J2405; J3010; J3370; J7120